=== PATIENT | male | born 1975 | race Two or more races ===

== ENCOUNTER → 2016-06-22 | Outpatient (CLI) | payer OTHER ==
[2016-06-22 13:34] LABS: Urine Bilirubin Negative (Negative); Urine Blood Negative /uL (Negative); Urine Color Yellow (Yellow); Urine Glucose Normal (Normal); Urine Ketone Negative (Negative); Urine Nitrite Negative (Negative); Urine RBC <1 /hpf (0 - 3); Urine Urobilinogen Normal (Negative); Urine pH 6.5 (5.0-8.0)
[2016-06-22 13:44] LABS: Albumin 3.7 g/dL (3.4-5.0); BUN/Creatinine Ratio 9.3; Bilirubin, Total 1.4 mg/dL (0.2-1.0); Potassium 4.3 mmol/L (3.5-5.1); Total Protein 7.2 g/dL (6.4-8.2)
[2016-06-22 13:50] LABS: Basophils # (auto) 0 uL; Basophils % (auto) 0.6 % (0.0-2.0); Eosinophils # (auto) 0.1 uL; Eosinophils % (auto) 1.4 % (0.0-7.0); Hematocrit 51.6 % (41.0-53.0); Hemoglobin 17.2 g/dL (13.5-17.5); Lymphocytes # (auto) 1.9 uL; Mean Corpuscular Hemoglobin 31.1 pg (28.0-32.0); Mean Corpuscular Hgb Conc. 33.3 g/dL (32.0-36.0); Mean Corpuscular Volume 93.2 fL (80.0-100.0); Mean Platelet Volume 8.3 fL (7.4-10.4); Monocytes # (auto) 0.5 uL; Neutrophils # (auto) 2.7 uL; Platelet Count (auto) 258 10^3/uL (140-450); Red Cell Distribution Width 14.3 % (11.6-16.0); White Blood Cell 5.2 10^3/uL (4.4-10.8)
== END | disposition home or self-care (01) ==
LOC: LAB 12:35
DX: E78.5 Hyperlipidemia, unspecified (principal)
CPT/HCPCS: 36415; 80053; 80061; 81001; 84443; 85025

== ENCOUNTER → 2016-07-28 | Outpatient (CLI) | payer OTHER ==
[2016-07-28 14:44] LABS: Urine RBC None Seen /hpf (0 - 3)
[2016-07-28 15:15] LABS: Albumin 3.8 g/dL (3.4-5.0); BUN/Creatinine Ratio 16.3; Calcium 8.9 mg/dL (8.5-10.1); Total Protein 7.3 g/dL (6.4-8.2)
[2016-07-28 15:27] LABS: Urine Bilirubin Negative (Negative); Urine Blood Negative /uL (Negative); Urine Color Yellow (Yellow); Urine Glucose Normal (Normal); Urine Ketone Negative (Negative); Urine Nitrite Negative (Negative); Urine Urobilinogen Normal (Negative); Urine pH 5.5 (5.0-8.0)
[2016-07-28 16:35] LABS: Hepatitis B Surface Antibody Negative
== END | disposition home or self-care (01) ==
LOC: LAB 13:46
DX: E78.5 Hyperlipidemia, unspecified (principal); Z20.2 Contact with and (suspected) exposure to infections with a predominantly sexual mode of transmission
CPT/HCPCS: 36415; 80053; 80061; 81001; 84443; 86592; 86703; 86704; 86706; 86708; 86803; 87340

== ENCOUNTER → 2017-07-25 | Outpatient (CLI) | payer OTHER ==
[2017-07-25 11:44] LABS: Urine Bacteria NONE SEEN /hpf (None Seen); Urine Blood Negative /uL (Negative); Urine Specific Gravity 1.003 (1.001-1.035); Urine WBC <1 /hpf (0 - 3)
[2017-07-25 11:45] LABS: Basophils # (auto) 0 uL; Basophils % (auto) 0.4 % (0.0-2.0); Eosinophils # (auto) 0.1 uL; Eosinophils % (auto) 1.3 % (0.0-7.0); Hematocrit 48.3 % (41.0-53.0); Hemoglobin 16.3 g/dL (13.5-17.5); Lymphocytes # (auto) 1.4 uL; Lymphocytes % (auto) 30.2 % (10.0-50.0); Mean Corpuscular Hemoglobin 31.3 pg (28.0-32.0); Mean Corpuscular Hgb Conc. 33.8 g/dL (32.0-36.0); Mean Corpuscular Volume 92.6 fL (80.0-100.0); Monocytes # (auto) 0.3 uL; Neutrophils # (auto) 2.8 uL; Neutrophils % (auto) 61.1 % (37.0-80.0); Nucleated Red Blood Cells % 0.1 %; Platelet Count (auto) 244 10^3/uL (140-450); Red Blood Cells 5.21 10^6/uL (4.5-5.90); Red Cell Distribution Width 13.6 % (11.8-14.3); White Blood Cell 4.7 10^3/uL (4.4-10.8)
[2017-07-25 12:39] LABS: Albumin 3.9 g/dL (3.4-5.0); BUN/Creatinine Ratio 15.4; Bilirubin, Total 0.8 mg/dL (0.2-1.0); Calcium 8.6 mg/dL (8.5-10.1); Potassium 3.7 mmol/L (3.5-5.1); Total Protein 7.4 g/dL (6.4-8.2)
== END | disposition home or self-care (01) ==
LOC: LAB 11:00
PROVIDERS: ATTEND Nurse Practitioner
DX: E78.5 Hyperlipidemia, unspecified (principal)
CPT/HCPCS: 36415; 80053; 80061; 81001; 83036; 84443; 85025

== ENCOUNTER → 2019-02-14 | Outpatient (CLI) | payer OTHER ==
[2019-02-14 15:43] LABS: Basophils # (auto) 0 uL; Basophils % (auto) 0.8 % (0.0-2.0); Eosinophils # (auto) 0.1 uL; Eosinophils % (auto) 1.3 % (0.0-7.0); Hematocrit 48.5 % (41.0-53.0); Hemoglobin 16.5 g/dL (13.5-17.5); Lymphocytes # (auto) 1.4 uL; Mean Corpuscular Hemoglobin 31.9 pg (28.0-32.0); Mean Corpuscular Volume 93.7 fL (80.0-100.0); Monocytes # (auto) 0.4 uL; Monocytes % (auto) 9.3 % (0.0-12.0); Neutrophils # (auto) 2.7 uL; Neutrophils % (auto) 58.6 % (37.0-80.0); Platelet Count (auto) 229 10^3/uL (140-450); Red Blood Cells 5.17 10^6/uL (4.5-5.90); Red Cell Distribution Width 13.7 % (11.8-14.3); White Blood Cell 4.7 10^3/uL (4.4-10.8)
[2019-02-14 16:08] LABS: Albumin 3.7 g/dL (3.4-5.0); BUN/Creatinine Ratio 12.6; Calcium 8.8 mg/dL (8.5-10.1)
[2019-02-14 16:12] LABS: Bilirubin, Total 0.7 mg/dL (0.2-1.0); Total Protein 7.5 g/dL (6.4-8.2)
== END | disposition home or self-care (01) ==
LOC: LAB 15:06
PROVIDERS: ATTEND Internal Medicine
DX: Z00.00 Encounter for general adult medical examination without abnormal findings (principal)
CPT/HCPCS: 36415; 80053; 80061; 82306; 84443; 85025

== ENCOUNTER → 2019-03-28 | Outpatient (CLI) | payer OTHER ==
[2019-03-28 15:54] LABS: INR 1.08 (0.9-1.15)
[2019-03-28 16:15] LABS: Folate (Folic Acid) 15.34 ng/mL (5.38-24)
== END | disposition home or self-care (01) ==
LOC: LAB 14:29
PROVIDERS: ATTEND Internal Medicine
DX: I26.99 Other pulmonary embolism without acute cor pulmonale (principal)
CPT/HCPCS: 36415; 81241; 82607; 82746; 83090; 85301; 85302; 85306; 85610; 85613; 85670; 85705; 85732

== ENCOUNTER → 2019-05-22 | Outpatient (CLI) | payer OTHER | END | disposition home or self-care (01) | LOC: LAB 15:09 | PROVIDERS: ATTEND Internal Medicine | DX: D68.2 Hereditary deficiency of other clotting factors (principal) | CPT/HCPCS: 36415; 85652; 86225; 86235 ==

== ENCOUNTER 2019-05-25 05:15 | Emergency (ER) | payer OTHER ==
[~2019-05-25] VITALS: Ht 175.3 cm; Wt 86.2 kg
[2019-05-25 06:45] LABS: Basophils # (auto) 0 uL; Eosinophils # (auto) 0 uL; Hemoglobin 18.6 g/dL (13.5-17.5); Lymphocytes # (auto) 0.4 uL; Mean Corpuscular Hgb Conc. 34.2 g/dL (32.0-36.0); Nucleated Red Blood Cells % 0.1 %
[2019-05-25 06:47] LABS: Basophils % (auto) 0.6 % (0.0-2.0); Hematocrit 54.5 % (41.0-53.0); Lymphocytes % (auto) 7.7 % (10.0-50.0); Mean Corpuscular Hemoglobin 31.6 pg (28.0-32.0); Mean Corpuscular Volume 92.4 fL (80.0-100.0); Monocytes # (auto) 0.3 uL; Monocytes % (auto) 6.5 % (0.0-12.0); Neutrophils # (auto) 4.5 uL; Neutrophils % (auto) 85.2 % (37.0-80.0); Platelet Count (auto) 249 10^3/uL (140-450); Red Blood Cells 5.89 10^6/uL (4.5-5.90); Red Cell Distribution Width 14.3 % (11.8-14.3); White Blood Cell 5.3 10^3/uL (4.4-10.8)
[2019-05-25 07:08] LABS: Albumin 3.9 g/dL (3.4-5.0); Anion Gap 10 (5-15); BUN/Creatinine Ratio 13.9; Blood Urea Nitrogen 16 mg/dL (7-18); Carbon Dioxide 23 mmol/L (21-32); Chloride 102 mmol/L (98-107); GFR African American 89 mL/min; GFR Non-African American 73 mL/min; Glucose 140 mg/dL (74-106); Magnesium 1.9 mg/dL (1.6-2.6); Sodium 135 mmol/L (136-145)
[2019-05-25] MEDS ORDERED: SODIUM CHLORIDE 0.9% 1,000 ML IVB ONE (07:14)
[2019-05-25] MEDS ORDERED: METOCLOPRAMIDE HCL 5MG/ml INJ 2ml VIAL IV ONE (07:15)
[2019-05-25 07:22] LABS: Alanine Aminotransferase 44 U/L (16-61); Alkaline Phosphatase 88 U/L (45-117); Aspartate Aminotransferase 34 U/L (15-37); Bilirubin, Total 0.8 mg/dL (0.2-1.0); Total Protein 8.2 g/dL (6.4-8.2)
[2019-05-25 08:17] LABS: INR 1.02 (0.9-1.15); Partial Thromboplastin Time 27.9 sec (23.64-32.05)
[2019-05-25 09:35] LABS: Urine Bacteria NONE SEEN /hpf (None Seen); Urine Blood TRACE /uL (Negative); Urine Mucus FEW (None Seen); Urine Specific Gravity 1.033 (1.001-1.035); Urine WBC 1 /hpf (0 - 3)
[2019-05-25 12:15] VITALS: BP 98/65
== END 2019-05-25 12:47 | disposition home or self-care (01) ==
LOC: ER 05:15
DX: K52.9 Noninfective gastroenteritis and colitis, unspecified (principal); K90.49 Malabsorption due to intolerance, not elsewhere classified
CPT/HCPCS: 36415; 71045; 80053; 81001; 83690; 83735; 84484; 85025; 85379; 85610; 85730; 93005; 99284; J2765

== ENCOUNTER → 2020-01-09 | Outpatient (CLI) | payer OTHER ==
[2020-01-09 15:00] LABS: Basophils # (auto) 0.1 10 ^3/uL (0-0.2); Basophils % (auto) 1.1 % (0.0-2.0); Eosinophils # (auto) 0.1 10 ^3/uL (0-0.8); Eosinophils % (auto) 1.4 % (0.0-7.0); Hematocrit 52.1 % (41.0-53.0); Hemoglobin 17.2 g/dL (13.5-17.5); Lymphocytes # (auto) 1.7 10 ^3/uL (0.4-5.4); Lymphocytes % (auto) 33.1 % (10.0-50.0); Mean Corpuscular Hemoglobin 31.3 pg (28.0-32.0); Mean Corpuscular Volume 94.9 fL (80.0-100.0); Monocytes # (auto) 0.5 10 ^3/uL (0-1.3); Monocytes % (auto) 9.8 % (0.0-12.0); Neutrophils # (auto) 2.9 10 ^3/uL (1.6-8.6); Neutrophils % (auto) 54.6 % (37.0-80.0); Nucleated Red Blood Cells % 0.2 %; Platelet Count (auto) 245 10^3/uL (140-450); Red Blood Cells 5.49 10^6/uL (4.5-5.90); White Blood Cell 5.2 10^3/uL (4.4-10.8)
[2020-01-09 18:09] LABS: Potassium 4.7 mmol/L (3.5-5.1)
[2020-01-09 18:44] LABS: Albumin 3.7 g/dL (3.4-5.0); BUN/Creatinine Ratio 9.3; Calcium 9.1 mg/dL (8.5-10.1); Total Protein 7.3 g/dL (6.4-8.2)
== END | disposition home or self-care (01) ==
LOC: LAB 14:47
PROVIDERS: ATTEND Internal Medicine
DX: Z00.00 Encounter for general adult medical examination without abnormal findings (principal); R73.03 Prediabetes; Z83.3 Family history of diabetes mellitus
CPT/HCPCS: 36415; 80053; 80061; 83036; 84439; 84443; 85025

== ENCOUNTER → 2020-07-02 | Outpatient (CLI) | payer OTHER ==
[2020-07-02 12:06] LABS: Albumin 3.6 g/dL (3.4-5.0); Potassium 4.2 mmol/L (3.5-5.1)
[2020-07-02 12:13] LABS: BUN/Creatinine Ratio 14.6; Bilirubin, Total 1.1 mg/dL (0.2-1.0); Total Protein 7.4 g/dL (6.4-8.2)
== END | disposition home or self-care (01) ==
LOC: LAB 11:12
PROVIDERS: ATTEND Internal Medicine
DX: E78.5 Hyperlipidemia, unspecified (principal)
CPT/HCPCS: 36415; 80053; 80061

== ENCOUNTER 2020-07-04 20:25 | Emergency (ER) | payer OTHER ==
[~2020-07-04] VITALS: Ht 175.3 cm; Wt 86.2 kg
[2020-07-04 23:01] VITALS: BP 142/83
== END 2020-07-04 23:32 | disposition home or self-care (01) ==
LOC: ER 20:27
DX: L02.811 Cutaneous abscess of head [any part, except face] (principal)

== ENCOUNTER 2021-05-03 13:02 | Emergency (ER) | payer BC, OTHER ==
[~2021-05-03] VITALS: Ht 175.3 cm; Wt 86.2 kg
[2021-05-03] MEDS ORDERED: ACET-1304 PO (22:00)
[2021-05-03] MEDS ORDERED: PSEU1SYP6 PO (22:00)
[2021-05-03] MEDS ORDERED: PRED20TA2 PO (22:00)
[2021-05-03] MEDS ORDERED: AZITTAB PO (22:00)
[2021-05-03 22:15] VITALS: BP 134/86
== END 2021-05-03 22:23 | disposition home or self-care (01) ==
LOC: ER 13:02
DX: U07.1 COVID-19 (principal); M79.10 Myalgia, unspecified site; R51.9 Headache, unspecified
CPT/HCPCS: 36415; 71045; 87426

== ENCOUNTER 2021-08-09 10:57 | Emergency (ER) | payer BC, OTHER ==
[~2021-08-09] VITALS: Ht 175.3 cm; Wt 86.2 kg
[~2021-08-09 10:57] MED LIST: ACET-1304 PO; AZITTAB PO; PRED20TA2 PO; PSEU1SYP6 PO
[2021-08-09 12:36] VITALS: BP 114/84
[2021-08-09] MEDS ORDERED: ACET-1158 PO (13:49)
[2021-08-09] MEDS ORDERED: CYCL-837 PO (13:49)
== END 2021-08-09 14:20 | disposition home or self-care (01) ==
LOC: ER 10:57
DX: S39.012A Strain of muscle, fascia and tendon of lower back, initial encounter (principal); V43.52XA Car driver injured in collision with other type car in traffic accident, initial encounter; Y93.89 Activity, other specified; Y92.488 Other paved roadways as the place of occurrence of the external cause; Y99.8 Other external cause status
CPT/HCPCS: 72100

== ENCOUNTER → 2022-02-28 | Outpatient (CLI) | payer BC ==
[~2022-02-28] MED LIST changes: +ACET-1158 PO; +CYCL-837 PO
[2022-02-28 08:31] LABS: Basophils # (auto) 0 10 ^3/uL (0-0.2); Basophils % (auto) 0.6 % (0.0-2.0); Eosinophils # (auto) 0.1 10 ^3/uL (0-0.8); Eosinophils % (auto) 1.7 % (0.0-7.0); Lymphocytes % (auto) 45.2 % (10.0-50.0); Mean Corpuscular Hemoglobin 31.4 pg (28.0-32.0); Mean Corpuscular Hgb Conc. 34.1 g/dL (32.0-36.0); Monocytes # (auto) 0.4 10 ^3/uL (0-1.3); Monocytes % (auto) 9.6 % (0.0-12.0); Neutrophils # (auto) 1.9 10 ^3/uL (1.6-8.6); Neutrophils % (auto) 42.9 % (37.0-80.0); Nucleated Red Blood Cells % 0.1 %; Red Blood Cells 5.43 10^6/uL (4.5-5.90); White Blood Cell 4.4 10^3/uL (4.4-10.8)
[2022-02-28 09:33] LABS: Albumin 3.7 g/dL (3.4-5.0); Calcium 9.2 mg/dL (8.5-10.1); Potassium 4.2 mmol/L (3.5-5.1); Total Protein 7.3 g/dL (6.4-8.2)
== END | disposition home or self-care (01) ==
LOC: LAB 07:56
PROVIDERS: ATTEND Internal Medicine
DX: I10 Essential (primary) hypertension (principal); E11.9 Type 2 diabetes mellitus without complications
CPT/HCPCS: 36415; 80053; 80061; 83036; 84153; 84443; 85025

== ENCOUNTER → 2022-05-31 | Outpatient (CLI) | payer BC ==
[2022-05-31 15:36] LABS: Anion Gap 2 (5-15); Carbon Dioxide 29 mmol/L (21-32); Chloride 110 mmol/L (98-107); Sodium 141 mmol/L (136-145)
[2022-05-31 15:37] LABS: Blood Urea Nitrogen 13 mg/dL (7-18); Glucose 112 mg/dL (74-106)
[2022-05-31 15:38] LABS: Alkaline Phosphatase 79 U/L (45-117); Aspartate Aminotransferase 32 U/L (15-37); BUN/Creatinine Ratio 12.9; GFR African American 102 mL/min; GFR Non-African American 84 mL/min
[2022-05-31 15:39] LABS: Alanine Aminotransferase 30 U/L (16-61); Albumin 3.7 g/dL (3.4-5.0); Bilirubin, Total 0.6 mg/dL (0.2-1.0); Calcium 8.6 mg/dL (8.5-10.1); Cholesterol 227 mg/dL (< 200); Total Protein 6.9 g/dL (6.4-8.2); Triglycerides 87 mg/dL (< 150)
[2022-05-31 15:40] LABS: HDL Cholesterol 47 mg/dL (40-59); LDL Cholesterol 153 mg/dL (< 100)
== END | disposition home or self-care (01) ==
LOC: LAB 11:57
PROVIDERS: ATTEND Internal Medicine
DX: E78.5 Hyperlipidemia, unspecified (principal)
CPT/HCPCS: 36415; 80053; 80061

== ENCOUNTER 2024-09-17 11:17 | Emergency (ER) | payer BC ==
[~2024-09-17] VITALS: Ht 175.3 cm; Wt 86.0 kg
[~2024-09-17 11:17] MED LIST changes: -ACET-1158 PO; +ACET500T58 PO
--- NOTE | 2024-09-17 11:55 | ED.PDOC ---
History of Present Illness HPI Comments 48-year-old male who comes in with chief complaint of left leg injury. The patient states that he was moving a pulp drier firer yesterday and it dropped on his left tib-fib area. The patient does have a history of DVT so came to the emergency department's for evaluation of the possible fracture on the leg. He states that he tried to ambulate on it in his seems to be getting worse. Time Seen by MD: 11:52 Primary Care Provider: MARLINE Reviewed Notes: Nurses Notes, Medications, Allergies (No allergies to medi cations) Allergies: Coded Allergies: NO KNOWN ALLERGIES (Unverified , 03/22/19) Home Meds Active Scripts Acetaminophen (Acetaminophen) 500 Mg Tab, 500 MG PO QIDP, #10 TAB 0 Refills Prov:TIMUR VALLE 08/09/21 Cyclobenzaprine Hcl (Cyclobenzaprine Hcl) 5 Mg Tab, 1 TAB PO QPM, #14 TAB 0 Refills Prov:TIMUR VALLE 08/09/21 Eszycsckcku-Vvczxmeq-Qp (Bromphen/Pseudoephedrine 30-2-10 mg/5Ml) 1 Syp Syp, 5 ML PO TID PRN, #240 ML Prov:BRENDA LOPEZ [employer]ICER 05/03/21 Acetaminophen (Tylenol Extra Strength) 500 Mg Tab, 500 MG PO Q4HP PRN for 10 Days, #50 TAB Prov:BRENDA LOPEZ [employer]SERV[employer] OFFICER 05/03/21 Prednisone (Prednisone) 20 Mg Tab, 40 MG PO DAILY for 5 Days, #10 TAB Prov:BRENDA LOPEZ [employer]IL[employer] CONSERVATION OFFICER 05/03/21 Azithromycin (Zithromax Z-Prabhakar) 250 Mg Tab, 250 MG PO take as directed for 5 Days, #6 TAB Prov:BRENDA LOPEZ [employer]IL[employer] CONSERVATION OFFICER 05/03/21 Information Source: Patient Mode of Arrival: Ambulatory Severity: Moderate Timing: Days Duration: Since onset Prehospital treatment: None Associated signs and symptoms Left tib-fib abrasion with pain Past Medical History PAST MEDICAL HISTORY: PE Past Medical History (Other): Previous history of DVT Surgical History: Denies all surgeries Family History Family History: Family hx of DM Social History Smoker: Non-Smoker Alcohol: Occasionally Drugs: Denies Drug Use Lives In: Home Constitutional: denies: chills, diaphoresis, fatigue, fever, malaise, sweats, weakness, others EENTM: denies: blurred vision, double vision, ear bleeding, ear discharge, ear drainage, ear pain, ear ringing, eye pain, eye redness, hearing loss, mouth pain, mouth swelling, nasal discharge, nose bleeding, nose congestion, nose pain, photophobia, tearing, throat pain, throat swelling, voice changes, others Respiratory: denies: cough, hemoptysis, orthopnea, SOB at rest, shortness of breath, SOB with excertion, stridor, wheezing, others Cardiovascular: denies: chest pain, dizzy spells, diaphoresis, Dyspnea on exertion, edema, irregular heart beat, left arm pain, lightheadedness, palpitations, PND, syncope, others Gastrointestinal: denies: abdomen distended, abdominal pain, blood streaked bowels, constipated, diarrhea, dysphagia, difficulty swallowing, hematemesis, melena, nausea, poor appetite, poor fluid intake, rectal bleeding, rectal pain, vomiting, others Genitourinary: denies: burning, dysuria, flank pain, frequency, hematuria, incontinence, penile discharge, penile sore, pain, testicle pain, testicle swelling, urgency, others Neurological: denies: dizziness, fainting, headache, left sided numbness, left sided weakness, numbness, paresthesia, pre-existing deficit, right sided numbness, right sided weakness, seizure, speech problems, tingling, tremors, weakness, others Musculoskeletal: reports: others (Left leg pain with abrasion); denies: back pain, gout, joint pain, joint swelling, muscle pain, muscle stiffness, neck pain Integumetry: denies: bruises, change in color, change in hair/nails, dryness, laceration, lesions, lumps, rash, wounds, others Allergic/Immunocompromised: denies: Difficulty Healing, Frequent Infections, Hives, Itching, others Hematologic/Lymphatic: denies: anemia, blood clots, easy bleeding, easy bruising, swollen glands, others Endocrine: denies: excessive hunger, excessive sweating, excessive thirst, excessive urination, flushing, intolerance to cold, intolerance to heat, unexplained weight gain, unexplained weight loss, others Psychiatric: denies: anxiety, bipolar disorder, depression, hopeless, panic disorder, schizophrenia, sleepless, suicidal, others Physical Exam General Appearance: No Apparent Distress HEENT: Normal ENT Inspection, Pharynx Normal, TMs Normal Neck: Full Range of Motion, Non-Tender, Normal, Normal Inspection Respiratory: Chest Non-Tender, Lungs Clear, No Accessory Muscle Use, No Respiratory Distress, Normal Breath Sounds Cardiovascular: No Edema, No JVD, No Murmur, No Gallop, Normal Peripheral Pulses, Regular Rate/Rhythm Breast Exam: Deferred Gastrointestinal: No Organomegaly, Non Tender, No Pulsatile Mass, Normal Bowel Sounds, Soft Genitalia: Deferred Pelvic: Deferred Rectal: Deferred Extremities: No calf tenderness, Normal capillary refill, Normal inspection, Normal range of motion, Non-tender, No pedal edema Musculoskeletal : Apperance: Normal Neurologic: Alert, surgeon chief II-XII nml as Tested, No Motor Deficits, Normal Affect, Normal Mood, No Sensory Deficits Cerebellar Function: Normal Reflexes: Normal Skin: Dry, Normal Color, Warm, Other (Abrasions to the left anterior tib-fib region) Lymphatic: No Adenopathy Was a procedure done? Was a procedure done?: No Differential Dx Considerations may include: Fracture, strain, contusion X-Ray, Labs, Meds, VS X-ray of the left tib-fib region is negative for any fracture. The patient is being discharged and will follow up with the primary care doctor The patient will return to the emergency department's the condition worsens. The patient understands and agrees with the management. Images Reviewed?: Images reviewed and evaluated by me Time of 1ST Reevaluation: 11:54 Reevaluation 1ST: Unchanged Patient Education/Counseling: Diagnosis, Treatment, Prognosis, Need For Follow Up Family Education/Counseling: No Family Present Departure 1 Departure Time of Disposition: 12:04 Impression: Primary Impression: Contusion of left leg Qualified Codes: S80.12XA - Contusion of left lower leg, initial encounter Disposition: HOME / SELF CARE / HOMELESS Condition: Fair Discharged With: Self Critical Care Note Critical Care Time?: No Stability Stability form required: No Heart Score Heart Score: Heart Score Response (Comments) Value History N/A 0 EKG N/A 0 Age N/A 0 Risk Factors N/A 0 Troponin N/A 0 Total 0 HAYDE MINOR MD September 17, 2024 11:55
[2024-09-17 12:10] VITALS: BP 127/89; PULSE 100; RESP 16; TEMP 98.4; O2SAT 95
--- NOTE | 2024-09-17 12:24 | DVH ---
CLINICAL INDICATION: trauma TECHNIQUE: 3 radiographic views of the left tibia/fibula were obtained. Comparison: None FINDINGS/IMPRESSION: There is no evidence of acute fracture or dislocation. The visualized joint space is well maintained. The alignment is anatomical. There is no radiopaque foreign body.
== END 2024-09-17 14:00 | disposition home or self-care (01) ==
LOC: ER 11:25
DX: S80.12XA Contusion of left lower leg, initial encounter (principal); Z86.718 Personal history of other venous thrombosis and embolism; Z86.711 Personal history of pulmonary embolism; Z79.52 Long term (current) use of systemic steroids; W22.8XXA Striking against or struck by other objects, initial encounter; Y93.89 Activity, other specified; Y92.89 Other specified places as the place of occurrence of the external cause; Y99.8 Other external cause status
CPT/HCPCS: 73590

== ENCOUNTER 2024-09-19 13:07 | Inpatient (IN) | payer BC ==
[~2024-09-19] VITALS: Ht 175.3 cm; Wt 91.0 kg
[2024-09-19 15:54] LABS: Basophils # (auto) 0 10 ^3/uL (0-0.2); Basophils % (auto) 0.4 % (0.0-2.0); Eosinophils # (auto) 0.1 10 ^3/uL (0-0.8); Eosinophils % (auto) 0.9 % (0.0-7.0); Hemoglobin 17.2 g/dL (13.5-17.5); Lymphocytes # (auto) 1.2 10 ^3/uL (0.4-5.4); Lymphocytes % (auto) 15.3 % (10.0-50.0); Mean Corpuscular Hemoglobin 31.9 pg (28.0-32.0); Mean Corpuscular Hgb Conc. 33.6 g/dL (32.0-36.0); Mean Corpuscular Volume 94.9 fL (80.0-100.0); Monocytes # (auto) 0.6 10 ^3/uL (0-1.3); Monocytes % (auto) 7.8 % (0.0-12.0); Neutrophils # (auto) 6.1 10 ^3/uL (1.6-8.6); Neutrophils % (auto) 75.6 % (37.0-80.0); Nucleated Red Blood Cells % 0.2 %; Platelet Count (auto) 230 10^3/uL (140-450); Red Blood Cells 5.37 10^6/uL (4.5-5.90); Red Cell Distribution Width 13.8 % (11.8-14.3); White Blood Cell 8.1 10^3/uL (4.4-10.8)
--- NOTE | 2024-09-19 15:56 | ED.PDOC ---
Musculoskeletal HPI Comments 48-year-old male presenting to the ED with chief complaint of left lower leg redness and pain. Patient reportedly he had previously dropped a dry onto his left leg on Monday. Patient relays that he had visited [facility] the next day where an x-ray showed no fractures and he was discharged same day. Patient states that noticed this morning there was more redness, swelling, and 8/10 pain to his left lower leg. Ice was applied to it however no relief was noted Patient has a history of pulmonary embolism in his currently on Eliquis. Unable to bear weight Denies further injury Denies another fall Denies previous surgeries to the leg Denies fever chills night sweats nausea vomiting Denies drainage to abrasion Chief Complaint: Lower Extremity Time Seen by MD: 15:42 Primary Care Provider: MARLINE Reviewed Notes: Nurses Notes, Medications, Allergies Allergies: Coded Allergies: NO KNOWN ALLERGIES (Unverified , 03/22/19) Home Meds Reported Medications Apixaban Base (ELIQUIS) 5 Mg Tab, 5 MG PO BID, TAB 09/19/24 Information Source: Patient Mode of Arrival: Ambulatory Location: Left Extremity Location: Tibia Timing: Hours Prehospital treatment: None Severity: Moderate Able to Move Extremity: Yes Bear Weight: Limited Pain: Moderate Mechanism: Blunt Trauma Circumstances: Accident Onset of Symptoms: After Trauma Symptoms: Swelling, Pain, Erythema, Warmth DVT Risk Factors: PE Last Tetanus: UTD Associated signs and symptoms: Swelling, Leg pain Past Medical History PAST MEDICAL HISTORY: PE Surgical History: Denies all surgeries Family History Family History: Family hx of DM Social History Smoker: Non-Smoker Alcohol: Occasionally Drugs: Denies Drug Use Lives In: Home Constitutional: denies: chills, diaphoresis, fatigue, fever, malaise, sweats, weakness, others EENTM: denies: blurred vision, double vision, ear bleeding, ear discharge, ear drainage, ear pain, ear ringing, eye pain, eye redness, hearing loss, mouth pain, mouth swelling, nasal discharge, nose bleeding, nose congestion, nose pain, photophobia, tearing, throat pain, throat swelling, voice changes, others Respiratory: denies: cough, hemoptysis, orthopnea, SOB at rest, shortness of breath, SOB with excertion, stridor, wheezing, others Cardiovascular: denies: chest pain, dizzy spells, diaphoresis, Dyspnea on exertion, edema, irregular heart beat, left arm pain, lightheadedness, palpitations, PND, syncope, others Gastrointestinal: denies: abdomen distended, abdominal pain, blood streaked bowels, constipated, diarrhea, dysphagia, difficulty swallowing, hematemesis, melena, nausea, poor appetite, poor fluid intake, rectal bleeding, rectal pain, vomiting, others Genitourinary: denies: burning, dysuria, flank pain, frequency, hematuria, incontinence, penile discharge, penile sore, pain, testicle pain, testicle swelling, urgency, others Neurological: denies: dizziness, fainting, headache, left sided numbness, left sided weakness, numbness, paresthesia, pre-existing deficit, right sided numbness, right sided weakness, seizure, speech problems, tingling, tremors, wea kness, others Musculoskeletal: denies: back pain, gout, joint pain, joint swelling, muscle pain, muscle stiffness, neck pain, others Integumetry: reports: change in color, wounds; denies: bruises, change in hair/nails, dryness, laceration, lesions, lumps, rash, others Allergic/Immunocompromised: denies: Difficulty Healing, Frequent Infections, Hives, Itching, others Hematologic/Lymphatic: denies: anemia, blood clots, easy bleeding, easy bruising, swollen glands, others Endocrine: denies: excessive hunger, excessive sweating, excessive thirst, excessive urination, flushing, intolerance to cold, intolerance to heat, unexplained weight gain, unexplained weight loss, others Psychiatric: denies: anxiety, bipolar disorder, depression, hopeless, panic disorder, schizophrenia, sleepless, suicidal, others All Other Systems: Reviewed and Negative Physical Exam General Appearance: No Apparent Distress, Normal HEENT: Normal ENT Inspection, Pharynx Normal, TMs Normal Neck: Full Range of Motion, Non-Tender, Normal, Normal Inspection Respiratory: Chest Non-Tender, Lungs Clear, No Accessory Muscle Use, No Respi ratory Distress, Normal Breath Sounds Cardiovascular: No Edema, No JVD, No Murmur, No Gallop, Normal Peripheral Pulses, Regular Rate/Rhythm Breast Exam: Deferred Gastrointestinal: No Organomegaly, Non Tender, No Pulsatile Mass, Normal Bowel Sounds, Soft Genitalia: Deferred Pelvic: Deferred Rectal: Deferred Extremities: Other (3x2 cm horizontal abrasion to the left anterior tibial shaft. Visible Surrounding erythema. Localized significantly swollen 2+, warmth to touch, TTP, and with no pain to the medial malleolus.) Musculoskeletal : Apperance: Normal Neurologic: Alert, binder cutter II-XII nml as Tested, No Motor Deficits, Normal Affect, Normal Mood, No Sensory Deficits Cerebellar Function: Normal Reflexes: Normal Skin: Dry, Normal Color, Warm Lymphatic: No Adenopathy Was a procedure done? Was a procedure done?: No Differential Diagnosis EXT Differential Diagnosis: Cellulitis, Deep Vein Thrombosis, Fracture, Disloca tion, Bursitis X-Ray, Labs, Meds, VS Vital Signs Date Time Temp Pulse Resp B/P (MAP) Pulse Ox O2 Delivery O2 Flow Rate FiO2 09/19/24 20:56 98.5 85 16 130/86 (101) 100 98.5 09/19/24 18:20 Room Air* 0 21 09/19/24 18:20 98.3 87 16 134/83 (100) 95 98.3 09/19/24 15:00 103 16 96 Room Air 09/19/24 15:00 97.6 103 16 140/86 (104) 96 97.6 09/19/24 13:17 97.9 109 16 140/88 (105) 95 97.9 Lab Test 09/19/24 15:26 Range/Units White Blood Count 8.1 4.4-10.8 10^3/uL Red Blood Count 5.37 4.5-5.90 10^6/uL Hemoglobin 17.2 13.5-17.5 g/dL Hematocrit 51.0 41.0-53.0 % Mean Corpuscular Volume 94.9 80.0-100.0 fL Mean Corpuscular Hemoglobin 31.9 28.0-32.0 pg Mean Corpuscular Hemoglobin Concent 33.6 32.0-36.0 g/dL Red Cell Distribution Width 13.8 11.8-14.3 % Platelet Count 230 140-450 10^3/uL Mean Platelet Volume 7.7 6.9-10.8 fL Neutrophils (%) (Auto) 75.6 37.0-80.0 % Lymphocytes (%) (Auto) 15.3 10.0-50.0 % Monocytes (%) (Auto) 7.8 0.0-12.0 % Eosinophils (%) (Auto) 0.9 0.0-7.0 % Basophils (%) (Auto) 0.4 0.0-2.0 % Neutrophils # (Auto) 6.1 1.6-8.6 10 ^3/uL Lymphocytes # (Auto) 1.2 0.4-5.4 10 ^3/uL Monocytes # (Auto) 0.6 0-1.3 10 ^3/uL Eosinophils # (Auto) 0.1 0-0.8 10 ^3/uL Basophils # (Auto) 0 0-0.2 10 ^3/uL Nucleated Red Blood Cells 0.2 % Erythrocyte Sedimentation Rate 49 H 0-20 mm/hr Sodium Level 138 136-145 mmol/L Potassium Level 3.8 3.5-5.1 mmol/L Chloride Level 104 98-107 mmol/L Carbon Dioxide Level 23 20-31 mmol/L Anion Gap 11 5-15 Blood Urea Nitrogen 15 9-23 mg/dL Creatinine 0.98 0.700-1.30 mg/dL Glomerular Filtration Rate Calc 95 >90 mL/min BUN/Creatinine Ratio 15.3 10.0-20.0 Serum Glucose 115 H 74-106 mg/dL Lactic Acid Level 0.8 0.4-2.0 mmol/L Calcium Level 10.1 8.7-10.4 mg/dL Total Bilirubin 1.1 H 0.2-1.0 mg/dL Direct Bilirubin 0.3 <0.3 mg/dL Aspartate Amino Transferase (AST) 17 13-40 U/L Alanine Aminotransferase (ALT) 21 7-40 U/L Alkaline Phosphatase 93 46-116 U/L C-Reactive Protein High Sensitivity 19.45 H <1.0 mg/dL Total Protein 7.9 5.7-8.2 g/dL Albumin 4.8 3.2-4.8 g/dL Microbiology Date/Time Source Procedure Growth Status 09/19/24 15:26 Blood Blood Culture - Preliminary NO GROWTH AFTER 72 HOURS OF INCUBATION. Resulted 09/19/24 15:10 Blood Blood Culture - Preliminary NO GROWTH AFTER 72 HOURS OF INCUBATION. Resulted [facility] [id number] [place] [id number] Ph: [phone] DIAGNOSTIC IMAGING Diagnostic Imaging Report : [id number] Signed PATIENT: LINDA GARSIA ACCT: [id number] UNIT: [id number] : 1975 LOC: ER ROOM / BED: / AGE / SEX: 48 / M ADM STATUS: REG ER SERVICE [id number] ORDERING PHYSICIAN: ESTRELLA BENZ NP PROCEDURE(s): LLDVT - LT Lower DVT REASON: R/O dvt ORDER NUMBER(s): [id number], ACCESSION NUMBER(s): [id number] Clinical History: R/O dvt Comparison: None Technique: Duplex Doppler evaluation of the deep venous system of the left lower extremity from the common femoral vein to the popliteal vein including color Doppler and spectral/pulsed waveform analysis was performed. Findings: The common femoral vein demonstrates appropriate compressibility and waveform variability. There is compressibility/patency of the great saphenous vein at the proximal thigh. The femoral vein demonstrates appropriate compressibility and waveform variability. The deep femoral vein demonstrates appropriate compressibility and waveform variability. The popliteal vein demonstrates appropriate compressibility and waveform variability. There is normal compressibility at the tibioperoneal trunk. Impression: 1. No left deep venous thrombosis. 2. If clinical concern/symptoms persist or worsen, short-interval follow-up study is suggested. ATED BY: ASHLEY CHRISTINA Jr., DO DICTATED DATE/TIME: 09/19/241601 SIGNED BY: ASHLEY CHRISTINA Jr., SIGNED DATE/TIME: 09/19/241601 CC: X-Ray, Labs, Meds, VS Comment 48-year-old male presenting to the ED with chief complaint of left lower leg redness and pain 10/10. Patient arrives alert and oriented, ABC's intact, afebrile, vital signs stable, saturating well in room air Peripheral IV insertion+ labs were ordered. CBC was ordered to exclude anemia, blood loss, or infection. BMP was ordered to exclude electrolyte abnormalities, renal failure, dehydr ation, hyperglycemia Blood culture and lactic acid ordered to rule out sepsis. CRP and ESR ordered to rule out inflammation. Labs showed: WBC 8.1, Neutrophils 75.6, electrolytes reassuring, GFR 95, serum glucose 115, CRP 19 lactic 0.8 Diagnostic imaging ordered by me and results interpreted by radiology : Left lower DVT Negative CT of the Left leg ordered to r/o deep space infection and abscess formation and results pending at this time History and findings consistent with cellulitis. Patient unable to bear weight on the affected leg d/t pain. Patient was started on IV abx and was given pain medication with minimal improvement on revaluation. The patient's workup reveals that the patient needs further treatment for the above medical conditions with Abx Patient verbalized understanding of the above and is awaiting further evaluation by the admitting service. Time of 1ST Reevaluation: 16:42 Reevaluation 1ST: Unchanged Time of 2ND Reevaluation: 17:11 Reevaluation 2ND: Unchanged Patient Education/Counseling: Diagnosis, Treatment Family Education/Counseling: No Family Present Sepsis Sepsis Reasesment Focused Exam Orders: Laboratory Tests 09/19/24 15:26: Lactic Acid Level 0.8 Departure 1 Departure Time of Disposition: 17:41 Impression: Primary Impression: Cellulitis Qualified Codes: L03.116 - Cellulitis of left lower limb Additional Impressions: Edema of left lower leg Intractable pain Disposition: ADMITTED INPATIENT Condition: Serious Critical Care Note Critical Care Time?: No Stability Stability form required: No Heart Score Heart Score: Heart Score Response (Comments) Value History N/A 0 EKG N/A 0 Age N/A 0 Risk Factors N/A 0 Troponin N/A 0 Total 0 I personally scribed for ESTRELLA BENZ NP (FRANOMA) on 09/19/24 at 15:56. Electronically submitted by Eliot Serrano ([email or web address]). I personally scribed for ESTRELLA BENZ NP (FRANOMA) on 09/19/24 at 16:21. Electronically submitted by Eliot Serrano ([email or web address]). ESTRELLA BENZ NP September 19, 2024 15:56
[2024-09-19 16:02] LABS: Chloride 104 mmol/L (98-107); Potassium 3.8 mmol/L (3.5-5.1); Sodium 138 mmol/L (136-145)
[2024-09-19 16:03] LABS: Anion Gap 11 (5-15); Carbon Dioxide 23 mmol/L (20-31)
[2024-09-19 16:04] LABS: Calcium 10.1 mg/dL (8.7-10.4)
--- NOTE | 2024-09-19 16:04 | DVH ---
Clinical History: R/O dvt Comparison: None Technique: Duplex Doppler evaluation of the deep venous system of the left lower extremity from the common femor al vein to the popliteal vein including color Doppler and spectral/pulsed waveform analysis was perfo rmed. Findings: The common femoral vein demonstrates appropriate compressibility and waveform variability. There is compressibility/patency of the great saphenous vein at the proximal thigh. The femoral vein demonstrates appropriate compressibility and waveform variability. The deep femoral vein demonstrates appropriate compressibility and waveform variability. The popliteal vein demonstrates appropriate compressibility and waveform variability. There is normal compressibility at the tibioperoneal trunk. Impression: 1. No left deep venous thrombosis. 2. If clinical concern/symptoms persist or worsen, short-interval follow-up study is suggested.
[2024-09-19 16:08] LABS: BUN/Creatinine Ratio 15.3 (10.0-20.0); Blood Urea Nitrogen 15 mg/dL (9-23)
[2024-09-19 16:09] LABS: Glucose 115 mg/dL (74-106)
[2024-09-19 16:20] LABS: CRP High Sensitivity 19.45 mg/dL (<1.0)
[2024-09-19 16:23] LABS: Erythrocyte Sedimentation Rate 49 mm/hr (0-20)
[2024-09-19] MEDS: cefTRIAXone 1GM/50ML D5W 50 ML IV ONE (16:30)
[2024-09-19] MEDS: IOHEXOL 300 MG/ML 100ML BOTTLE IJ ONE (16:33)
[2024-09-19] MEDS: HYDROcodone-ACET 10/325MG TAB PO ONE (17:14)
--- NOTE | 2024-09-19 18:11 | DVH ---
Procedure: CT LT LOWER EXTREMITY W CONTRAS 09/19/2024 04:39 PM Indication: Cellulitis. R/o abscess formation Comparison Study: None Technique: Axial images of the left lower extremity (knee to the toes) were obtained after intravenou s administration of contrast and reformatted in coronal and sagittal planes. All CT scans at this [facility] facility are performed using dose modulation techniques as appropriate to a performed exam inclu ding the following: Automated exposure control was utilized; adjustment of the MA and/or KV according to patient size; and use of iterative reconstruction technique. CT Dose: CTDI volume is 7.75 mGy. Do se-length product is 494.8 mGy*cm FINDINGS: Bones: No acute fracture or dislocation. Joint spaces are maintained. Tibial hallux sesamoid is seen. Soft tissues: Moderate subcutaneous edema noted over the lower calf medial malleolus. There is focal thickening of distal greater saphenous vein at the level of the lower leg and medial malleolus. IMPRESSION: 1. Cellulitis with no drainable fluid collection or evidence of osteomyelitis. Distal greater sapheno us thrombophlebitis can not be ruled out. Recommend clinical correlation and further evaluation with venous Doppler exam if clinically warranted.
[2024-09-19] MEDS: VANCOMYCIN 1GM/200ML PM 200 ML IV ONE (18:19)
[2024-09-19] MEDS ORDERED: VANCOMYCIN PER PHARMACY 0 MG IV SCH (21:15)
[2024-09-19] MEDS ORDERED: ACETAMINOPHEN 325 MG TAB PO PRN (21:15)
[2024-09-19 21:34] LABS: Bilirubin, Direct 0.3 mg/dL (<0.3); Bilirubin, Total 1.1 mg/dL (0.2-1.0); Total Protein 7.9 g/dL (5.7-8.2)
[2024-09-19 21:35] LABS: Albumin 4.8 g/dL (3.2-4.8)
--- NOTE | 2024-09-19 21:57 | DVHHP2 ---
History of Present Illness History of Present Illness 48-year-old male with past medical history of DVT 2 months ago (currently on apixaban), presents with left lower leg pain, redness, and swelling that started worsening over the last few days. He reports that on Monday, a dryer fell onto his left leg. He initially went to an outside ER where x-rays were negative for fracture and he was discharged. However, symptoms progressed with increased redness, swelling, and pain rated 8/10. He denies fevers, chills, night sweats, nausea, vomiting, or recent trauma other than the dryer incident. He is currentl y unable to bear weight on the leg. CT imaging revealed soft tissue edema and thickening in the distal leg; no fracture. Past Medical History: Recent DVT (on apixaban per patient) Medications: Apixaban 5 mg BID Tylenol as needed for pain Allergies: No known drug allergies Social History: Ambulatory prior to this event No mention of tobacco or drug use Alcohol: 4 shots every day (last intake on monday) Review of Systems Review of Systems Negative for fevers, chills, nausea, vomiting, chest pain, or shortness of breath. Allergies: Coded Allergies: NO KNOWN ALLERGIES (Unverified , 03/22/19) Medications Current Medications Medications Dose Ordered Sig/Srinath Route Start Time Stop Time Status Last Admin Dose Admin Vancomycin HCl 0 ml @ 0 mls/hr UD IV 09/19/24 21:15 Ceftriaxone Sodium 50 ml @ 100 mls/hr DAILY@09 IV 09/20/24 09:00 Apixaban 5 mg BID PO 09/19/24 22:00 Acetaminophen 650 mg Q4HP PRN PO 09/19/24 21:15 Ibuprofen 600 mg Q8HP PRN PO 09/19/24 21:15 Vancomycin HCl 200 ml @ 200 mls/hr Q12HR IV 09/20/24 10:00 Exam Vital Signs Vital Signs Date Time Temp Pulse Resp B/P (MAP) Pulse Ox O2 Delivery O2 Flow Rate FiO2 09/19/24 20:56 98.5 85 16 130/86 (101) 100 98.5 09/19/24 18:20 Room Air* 0 21 Exam Extremities: Left lower leg with swelling, erythema, and tenderness. Unable to bear weight. General Appearance: Alert, Oriented X3 HEENT: Atraumatic, PERRLA Respiratory: Clear to auscultation Cardiovascular: Regular rate Abdominal: Normal bowel sounds Neuro: Normal gait, Normal speech Psych/Mental Status: Mental status NL Labs/Xrays Labs Test 09/19/24 15:26 Range/Units White Blood Count 8.1 4.4-10.8 10^3/uL Red Blood Count 5.37 4.5-5.90 10^6/uL Hemoglobin 17.2 13.5-17.5 g/dL Hematocrit 51.0 41.0-53.0 % Mean Corpuscular Volume 94.9 80.0-100.0 fL Mean Corpuscular Hemoglobin 31.9 28.0-32.0 pg Mean Corpuscular Hemoglobin Concent 33.6 32.0-36.0 g/dL Red Cell Distribution Width 13.8 11.8-14.3 % Platelet Count 230 140-450 10^3/uL Mean Platelet Volume 7.7 6.9-10.8 fL Neutrophils (%) (Auto) 75.6 37.0-80.0 % Lymphocytes (%) (Auto) 15.3 10.0-50.0 % Monocytes (%) (Auto) 7.8 0.0-12.0 % Eosinophils (%) (Auto) 0.9 0.0-7.0 % Basophils (%) (Auto) 0.4 0.0-2.0 % Neutrophils # (Auto) 6.1 1.6-8.6 10 ^3/uL Lymphocytes # (Auto) 1.2 0.4-5.4 10 ^3/uL Monocytes # (Auto) 0.6 0-1.3 10 ^3/uL Eosinophils # (Auto) 0.1 0-0.8 10 ^3/uL Basophils # (Auto) 0 0-0.2 10 ^3/uL Nucleated Red Blood Cells 0.2 % Erythrocyte Sedimentation Rate 49 H 0-20 mm/hr Sodium Level 138 136-145 mmol/L Potassium Level 3.8 3.5-5.1 mmol/L Chloride Level 104 98-107 mmol/L Carbon Dioxide Level 23 20-31 mmol/L Anion Gap 11 5-15 Blood Urea Nitrogen 15 9-23 mg/dL Creatinine 0.98 0.700-1.30 mg/dL Glomerular Filtration Rate Calc 95 >90 mL/min BUN/Creatinine Ratio 15.3 10.0-20.0 Serum Glucose 115 H 74-106 mg/dL Lactic Acid Level 0.8 0.4-2.0 mmol/L Calcium Level 10.1 8.7-10.4 mg/dL Total Bilirubin 1.1 H 0.2-1.0 mg/dL Direct Bilirubin 0.3 <0.3 mg/dL Aspartate Amino Transferase (AST) 17 13-40 U/L Alanine Aminotransferase (ALT) 21 7-40 U/L Alkaline Phosphatase 93 46-116 U/L C-Reactive Protein High Sensitivity 19.45 H <1.0 mg/dL Total Protein 7.9 5.7-8.2 g/dL Albumin 4.8 3.2-4.8 g/dL Assessment/Plan Assessment/Plan #Leg cellulitis #H/o DVT #Possible Distal greater saphenous thrombophlebitis #Alcohol abuse Admit Med surg Apixaban 5 mg BID Vancomycin and ceftriaxone IV Tylenol for pain Case discussed with Dr Chi Full code Plan discussed with: Patient, Other (rn) My Orders Orders - IMMANUEL GARZA Procedure Category Date Status Time Admit ADMIT 09/19/24 Transmitted 21:05 Code Status CODE 09/19/24 Transmitted 21:05 Vital Signs [facility] 09/19/24 In Process 21:05 Review Orders With [facility] 09/19/24 In Process Adm. 21:05 Regular Diet DIET 09/20/24 Transmitted Breakfast Notify Of Changes [facility] 09/19/24 In Process From Base 21:05 Advance Directive [facility] 09/19/24 In Process 21:05 Patient Condition ORDERS 09/19/24 Transmitted 21:05 Allergies [facility] 09/19/24 In Process 21:05 Vancomycin Per [facility] 09/19/24 In Process Pharmacy 21:15 Ceftriaxone 1gm/50ml [facility] 09/20/24 In Process D5w (Rocephin) 09:00 Apixaban (Eliquis) [facility] 09/19/24 In Process 22:00 Acetaminophen Tablet [facility] 09/19/24 In Process (Tylenol Tablet) 21:15 Ibuprofen Tablet [facility] 09/19/24 In Process (Motrin Tablet) 21:15 * Wound Consult CONS 09/19/24 Transmitted Wound Culture W/ Gs RIAN 09/19/24 Logged 21:05 Vancomycin,Trough LAB 09/21/24 Verified 09:00 Vancomycin Per [facility] 09/21/24 In Process Pharmacy Protoc 10:00 Creatinine LAB 09/20/24 Verified 05:00 Vancomycin 1gm/200ml [facility] 09/20/24 In Process Pm 10:00 Urinalysis LAB 09/19/24 Logged 21:41 Drug Screen LAB 09/19/24 Logged 21:41 Date of Service: September 19, 2024 Billing Provider: ERICA CHI MD Common Visit Codes: [id number] INP/OBS CARE (HIGH) Secondary Visit Codes: [id number] CARE PLAN 30 MINUTES IMMANUEL GARZA RESIDENT September 19, 2024 21:57
[2024-09-19] MEDS: APIXABAN 5 MG TAB PO SCH (22:00)
[2024-09-19] MEDS ORDERED: APIX5TAB PO (23:43)
[2024-09-20] MEDS: IBUPROFEN 600 MG TAB PO PRN (00:25)
[2024-09-20 05:44] LABS: Basophils # (auto) 0 10 ^3/uL (0-0.2); Basophils % (auto) 0.6 % (0.0-2.0); Eosinophils # (auto) 0.1 10 ^3/uL (0-0.8); Eosinophils % (auto) 1.9 % (0.0-7.0); Hematocrit 46.6 % (41.0-53.0); Lymphocytes # (auto) 1.3 10 ^3/uL (0.4-5.4); Lymphocytes % (auto) 19.2 % (10.0-50.0); Mean Corpuscular Hemoglobin 32.4 pg (28.0-32.0); Mean Corpuscular Hgb Conc. 34.4 g/dL (32.0-36.0); Mean Corpuscular Volume 94.3 fL (80.0-100.0); Monocytes # (auto) 0.6 10 ^3/uL (0-1.3); Monocytes % (auto) 9.5 % (0.0-12.0); Neutrophils # (auto) 4.7 10 ^3/uL (1.6-8.6); Neutrophils % (auto) 68.8 % (37.0-80.0); Nucleated Red Blood Cells % 0.1 %; Platelet Count (auto) 233 10^3/uL (140-450); Red Blood Cells 4.94 10^6/uL (4.5-5.90); Red Cell Distribution Width 13.9 % (11.8-14.3); White Blood Cell 6.8 10^3/uL (4.4-10.8)
[2024-09-20 06:07] LABS: Alanine Aminotransferase 16 U/L (7-40); Albumin 4.4 g/dL (3.2-4.8); Alkaline Phosphatase 84 U/L (46-116); Anion Gap 8 (5-15); Aspartate Aminotransferase 17 U/L (13-40); BUN/Creatinine Ratio 18.4 (10.0-20.0); Blood Urea Nitrogen 16 mg/dL (9-23); Calcium 9.8 mg/dL (8.7-10.4); Carbon Dioxide 24 mmol/L (20-31); Chloride 105 mmol/L (98-107); Glucose 88 mg/dL (74-106); Potassium 3.7 mmol/L (3.5-5.1); Sodium 137 mmol/L (136-145); Total Protein 7.2 g/dL (5.7-8.2)
[2024-09-20 08:38] VITALS: BP 129/80; PULSE 69; RESP 20; TEMP 98.4; O2SAT 94
[2024-09-20] MEDS: cefTRIAXone 1GM/50ML D5W 50 ML IV SCH (09:20)
[2024-09-20] MEDS: VANCOMYCIN 1GM/200ML PM 200 ML IV SCH (09:21)
[2024-09-20 12:39] VITALS: BP 117/74; PULSE 66; RESP 18; TEMP 98; O2SAT 95
[2024-09-20] MEDS: SODIUM CHLORIDE 0.9% 1,000 ML IV ONE (12:43)
[2024-09-20 13:10] LABS: Urine Bacteria FEW /hpf (None Seen); Urine Blood Negative /uL (Negative); Urine Clarity Clear (Clear); Urine Color Yellow (Yellow); Urine Protein, UAD TRACE (Negative); Urine Specific Gravity 1.032 (1.001-1.035); Urine Squamous Epithelial Cell FEW /hpf (<5); Urine Urobilinogen 2 mg/dL (Negative); Urine WBC 1 /HPF (0-3); Urine pH 5.5 (5.0-9.0)
[2024-09-20 13:13] LABS: Opiate Scree,Urine Neg (NEGATIVE)
[2024-09-20 13:26] LABS: Amphetamine Screen, Urine Neg (NEGATIVE); Barbiturate Scree,Urine Neg (NEGATIVE); Benzodiazephine Screen, Urine Neg (NEGATIVE); Cannabinoid Screen, Urine Neg (NEGATIVE); Cocaine Screen, Urine Neg (NEGATIVE); Phencyclidine Screen, Urine Neg (NEGATIVE)
[2024-09-20 13:30] VITALS: BP 130/79; PULSE 77; RESP 16; TEMP 97.9; O2SAT 95
--- NOTE | 2024-09-20 14:42 | DVHPNRES ---
Progress Note Date Seen: September 20, 2024 Resident Creating Document: BELLA PHAN RESIDENT Medical Necessity Reason Pt with a Central, PICC or Fol: No Subjective Review of Systems Patient is a 48-year-old male with a past medical history of DVT and PE 2 years ago currently on Eliquis presented to the ED with a chief complaint of left lower leg swelling for 4 days prior to presentation. Patient reported that he was moving stuff in his yd on Monday when Fell onto his leg injuring the leg following which started to have severe pain and he visited the emergency where x-ray was done and no fracture or dislocation was reported and patient was sent home. Patient went home and started to have swelling of the lower extremity with the associated tenderness and erythema. Patient has had worsening pain following which she came to the hospital. Past medical history: DVT and PE currently on Eliquis Surgical history: None Social history: Patient denies smoking or any other drug use but drinks 4 shots of alcohol every day Medications: Eliquis 5 mg b.i.d. Review of systems Patient seen and examined at the bedside Reports of pain in the left lower extremity, no fever, chills Objective vital signs Vital Sign Date Time Temp Pulse Resp B/P (MAP) Pulse Ox O2 Delivery O2 Flow Rate FiO2 09/20/24 12:39 98.0 66 18 117/74 (88) 95 98.0 09/19/24 18:20 Room Air* 0 21 Total Intake and Output 09/19/24 09/19/24 09/20/24 15:00 23:00 07:00 Intake Total 200 ml 200 ml Balance 200 ml 200 ml medications Current Medications Medications Dose Ordered Sig/Srinath Route Start Time Stop Time Status Last Admin Dose Admin Vancomycin HCl 0 ml @ 0 mls/hr UD IV 09/19/24 21:15 Ceftriaxone Sodium 50 ml @ 100 mls/hr DAILY@09 IV 09/20/24 09:00 09/20/24 09:20 100 MLS/HR Apixaban 5 mg BID PO 09/19/24 22:00 Acetaminophen 650 mg Q4HP PRN PO 09/19/24 21:15 Ibuprofen 600 mg Q8HP PRN PO 09/19/24 21:15 09/20/24 00:25 600 MG Examination Gen - no pallor, no icterus, no cyanosis, no clubbing, no LAD, no edema . Skin - Patients skin is warm and dry. HEENT - normocephalic, atraumatic, moist mucous membranes. Neck - full ROM, no LAD, no JVD Pulmonary - B/L equal breath sounds, no crackles, no wheezing, no stridor. cardiovascular - regular S1,S2 heard, no added sounds, no murmurs heard. peripheral pulses normal radial 2+, pedal 2+. capillary refill normal <2 secs. GI - soft, nontender abdomen. no hepatospleenomegaly. Bowel sounds normoactive Extremities: Left lower extremity erythema area seen measuring about 8 cm X 6 cm, area marked Neurological - Patient is A/O X 3 . Bilateral upper extremity strength 5/5, bilateral lower extremity strength 5/5, no facial droop, normal speech, no tremor, no sensory deficiets. laboratory and microbiology Laboratory Tests 09/20/24 04:57 Test 09/20/24 04:57 Range/Units Serum Glucose 88 74-106 mg/dL Problem List/Assessment/Plan Problem List/Assessment/Plan Left lower extremity cellulitis - left lower extremity CT showed cellulitis with no drainable fluid collection or evidence of osteomyelitis, no acute fracture or dislocation - 1 dose of vancomycin given - IV ceftriaxone - monitor area of erythema - blood culture after 24 hours of incubation showed no growth - pain management - IV fluids H/O DVT and PE ? Distal left great saphenous thrombophlebitis - continued on Eliquis 5 mg b.i.d. - left lower extremity Doppler showed no evidence of deep venous thrombosis PUD prophylaxis: Protonix Goals of care discussed with the patient for over 27 minutes. Full code Plan discussed with Dr. Holguin Plan discussed with: Patient My Orders My Orders Orders - BELLA PHAN RESIDENT Procedure Category Date Status Time Sodium Chloride 0.9% PHA 09/20/24 In Process 11:30 Date of Service: September 20, 2024 Billing Provider: YARELIS HOLGUIN MD Common Visit Codes: [id number] INP/OBS CARE(HIGH) BELLA PHAN RESIDENT September 20, 2024 14:42 YARELIS HOLGUIN MD September 21, 2024 05:11
[2024-09-20 16:54] VITALS: BP 114/70; PULSE 70; RESP 18; TEMP 99.6; O2SAT 97
--- NOTE | 2024-09-20 19:07 | DVH ---
EXAM: US BILAT LOW EXT ART DUPLEX INDICATION: Swelling TECHNIQUE: Grayscale and color Doppler sonographic imaging evaluation of the right and left lower ext remity arterial system was performed COMPARISON: None available at the time of dictation. FINDINGS: RIGHT LOWER EXTREMITY ARTERIES: Common femoral artery: 101 cm/s, triphasic Deep femoral artery: 41 cm/s, triphasic Proximal femoral artery: 67 cm/s, triphasic Mid femoral artery: 104 cm/s, triphasic Distal femoral artery: 63 cm/s, triphasic Popliteal artery: 74 cm/s, triphasic Posterior tibial artery: 99 cm/s, triphasic Dorsalis pedis artery: 31 cm/s, triphasic LEFT LOWER EXTREMITY ARTERIES: Common femoral artery: 79 cm/s, triphasic Deep femoral artery: 38 cm/s, triphasic Proximal femoral artery: 106 cm/s, triphasic Mid femoral artery: 120 cm/s, triphasic Distal femoral artery: 97 cm/s, triphasic Popliteal artery: 93 cm/s, triphasic Posterior tibial artery: 58 cm/s, triphasic Dorsalis pedis artery: 67 cm/s, triphasic REFERENCE VALUES: Normal velocity ranges (in cm/sec) are as follows: [employer] 95-140, SFA 75-105, popliteal 54-84, tibial 41-81 cm/sec. Stenosis categories: 1.5-2.0 x normal velocity = 30-49%, 2.0-4.0 x normal velocity = 50-75%, >4.0 x normal velocity = >75%. IMPRESSION: 1. No sonographic evidence of a lower extremity arterial occlusion. Velocities as above.
[2024-09-20 20:00] VITALS: PULSE 81; RESP 19; O2SAT 96
[2024-09-20 21:00] VITALS: BP 121/67; PULSE 81; RESP 18; TEMP 96.8; O2SAT 96
[2024-09-21] VITALS (8 sets, daily range): BP systolic 106–130; BP diastolic 70–89; PULSE 63–85; RESP 16–18; TEMP 96.4–98.7; O2SAT 94–99
[2024-09-21] MEDS: PANTOPRAZOLE 40 MG TAB PO SCH (05:44)
[2024-09-21 06:44] LABS: Basophils # (auto) 0 10 ^3/uL (0-0.2); Basophils % (auto) 0.6 % (0.0-2.0); Eosinophils # (auto) 0.1 10 ^3/uL (0-0.8); Eosinophils % (auto) 2.3 % (0.0-7.0); Hematocrit 43.6 % (41.0-53.0); Hemoglobin 15.1 g/dL (13.5-17.5); Lymphocytes # (auto) 1.3 10 ^3/uL (0.4-5.4); Lymphocytes % (auto) 24.9 % (10.0-50.0); Mean Corpuscular Hemoglobin 32.3 pg (28.0-32.0); Mean Corpuscular Hgb Conc. 34.6 g/dL (32.0-36.0); Mean Corpuscular Volume 93.2 fL (80.0-100.0); Monocytes # (auto) 0.6 10 ^3/uL (0-1.3); Monocytes % (auto) 10.2 % (0.0-12.0); Neutrophils # (auto) 3.4 10 ^3/uL (1.6-8.6); Nucleated Red Blood Cells % 0.1 %; Platelet Count (auto) 238 10^3/uL (140-450); Red Blood Cells 4.68 10^6/uL (4.5-5.90); Red Cell Distribution Width 13.5 % (11.8-14.3); White Blood Cell 5.4 10^3/uL (4.4-10.8)
[2024-09-21 06:51] LABS: Chloride 106 mmol/L (98-107); Potassium 3.9 mmol/L (3.5-5.1); Sodium 140 mmol/L (136-145)
[2024-09-21 06:52] LABS: Anion Gap 8 (5-15); Carbon Dioxide 26 mmol/L (20-31)
[2024-09-21 06:53] LABS: Calcium 9.7 mg/dL (8.7-10.4)
[2024-09-21 06:58] LABS: BUN/Creatinine Ratio 16.5 (10.0-20.0); Blood Urea Nitrogen 15 mg/dL (9-23); Glucose 124 mg/dL (74-106)
--- NOTE | 2024-09-21 15:54 | DVHPNRES ---
Progress Note Date Seen: September 21, 2024 Resident Creating Document: BELLA PHAN RESIDENT Medical Necessity Reason Pt with a Central, PICC or Fol: No Subjective Review of Systems Patient seen and examined at the bedside Reports of pain in the left lower extremity improved since yesterday; no fever, chills Objective vital signs Vital Sign Date Time Temp Pulse Resp B/P (MAP) Pulse Ox O2 Delivery O2 Flow Rate FiO2 09/21/24 13:00 98.1 69 17 123/74 (90) 95 98.1 09/21/24 08:00 Room Air* 0 21 Total Intake and Output 09/20/24 09/20/24 09/21/24 15:00 23:00 07:00 Intake Total 250 ml 200 ml 700 ml Balance 250 ml 200 ml 700 ml medications Current Medications Medications Dose Ordered Sig/Srinath Route Start Time Stop Time Status Last Admin Dose Admin Vancomycin HCl 0 ml @ 0 mls/hr UD IV 09/19/24 21:15 Cancel Ceftriaxone Sodium 50 ml @ 100 mls/hr DAILY@09 IV 09/20/24 09:00 09/21/24 08:43 100 MLS/HR Apixaban 5 mg BID PO 09/19/24 22:00 09/21/24 08:43 5 MG Acetaminophen 650 mg Q4HP PRN PO 09/19/24 21:15 Ibuprofen 600 mg Q8HP PRN PO 09/19/24 21:15 09/21/24 05:47 600 MG Pantoprazole Sodium 40 mg DAILY@0600 PO 09/21/24 06:00 09/21/24 05:44 40 MG Examination Gen - no pallor, no icterus, no cyanosis, no clubbing, no LAD, no edema . Skin - Patients skin is warm and dry. HEENT - normocephalic, atraumatic, moist mucous membranes. Neck - full ROM, no LAD, no JVD Pulmonary - B/L equal breath sounds, no crackles, no wheezing, no stridor. cardiovascular - regular S1,S2 heard, no added sounds, no murmurs heard. peripheral pulses normal radial 2+, pedal 2+. capillary refill normal <2 secs. GI - soft, nontender abdomen. no hepatosplenomegaly. Bowel sounds normoactive Extremities: Left lower extremity erythema area decreased slightly since yesterday with decreased tenderness Neurological - Patient is A/O X 3 . Bilateral upper extremity strength 5/5, bilateral lower extremity strength 5/5, no facial droop, normal speech, no tremor, no focal deficits laboratory and microbiology Laboratory Tests 09/21/24 05:28 Test 09/21/24 05:28 Range/Units Serum Glucose 124 H 74-106 mg/dL Microbiology Date/Time Source Procedure Growth Status 09/19/24 15:26 Blood Blood Culture - Preliminary NO GROWTH AFTER 48 HOURS OF INCUBATION. Resulted Labs and/or images reviewed: Labs reviewed by me, Image(s) reviewed by me Problem List/Assessment/Plan Problem List/Assessment/Plan Left lower extremity cellulitis - left lower extremity CT showed cellulitis with no drainable fluid collection or evidence of osteomyelitis, no acute fracture or dislocation - 1 dose of vancomycin given - IV ceftriaxone - monitor area of erythema - blood culture after 48 hours of incubation showed no growth - pain management - IV fluids H/O DVT and PE Probable Distal left great saphenous thrombophlebitis - continued on Eliquis 5 mg b.i.d. - left lower extremity Doppler showed no evidence of deep venous thrombosis PUD prophylaxis: Protonix Goals of care discussed with the patient for 20 minutes. Full code Plan discussed with Dr. Louie Plan discussed with: Patient, Other (RN) My Orders My Orders Orders - BELLA PHAN RESIDENT Procedure Category Date Status Time Bilat Low Ext Art US 09/20/24 Resulted Duplex 16:24 Pantoprazole Tablet PHA 09/21/24 In Process (Protonix Tablet) 06:00 Addendum Addendum Addendum I was physically present for the tilley portions of the service provided to patient by THE RESIDENT. I have reviewed the documentation, discussed the case with resident and agree with the resident's documentation except as noted. Also the patient's clinical case was discussed with the patient's nurse. This medical document was created using an electronic medical record system with computerized dictation system. Although this document has been carefully reviewed, there might still be some phonetic and typographical errors. These areas are purely typographical due to imperfections of the software programs, and do not reflect any compromise in the patient's medical care. Late signature. Date of Service: September 21, 2024 Billing Provider: HERNÁN LOUIE MD Common Visit Codes: [id number] INP/OBS CARE(HIGH) Secondary Visit Codes: [id number] CARE PLAN 30 MINUTES (20 minutes) BELLA PHAN RESIDENT September 21, 2024 15:54 HERNÁN LOUIE MD Sep 22, 2024 12:36
[2024-09-22] VITALS (8 sets, daily range): BP systolic 93–129; BP diastolic 53–75; PULSE 59–77; RESP 14–18; TEMP 97–98.6; O2SAT 94–96
--- NOTE | 2024-09-22 18:41 | DVHPNRES ---
Progress Note Date Seen: Sep 22, 2024 Resident Creating Document: ROBBY DUKE RESIDENT Medical Necessity Reason Pt with a Central, PICC or Fol: No Subjective Review of Systems Patient seen and examined at bedside Continued to have left lower extremity erythema, pains mildly improved No fever, chills, no any other new events, no new night events. Objective vital signs Vital Sign Date Time Temp Pulse Resp B/P (MAP) Pulse Ox O2 Delivery O2 Flow Rate FiO2 09/22/24 16:30 97.8 64 14 119/66 (83) 95 97.8 09/22/24 08:00 Room Air* 0 21 Total Intake and Output 09/21/24 09/21/24 09/22/24 15:00 23:00 07:00 Intake Total 50 ml 1140 ml 800 ml Balance 50 ml 1140 ml 800 ml medications Current Medications Medications Dose Ordered Sig/Srinath Route Start Time Stop Time Status Last Admin Dose Admin Vancomycin HCl 0 ml @ 0 mls/hr UD IV 09/19/24 21:15 Cancel Ceftriaxone Sodium 50 ml @ 100 mls/hr DAILY@09 IV 09/20/24 09:00 09/22/24 09:24 100 MLS/HR Apixaban 5 mg BID PO 09/19/24 22:00 09/22/24 09:24 5 MG Acetaminophen 650 mg Q4HP PRN PO 09/19/24 21:15 Ibuprofen 600 mg Q8HP PRN PO 09/19/24 21:15 09/22/24 09:29 600 MG Pantoprazole Sodium 40 mg DAILY@0600 PO 09/21/24 06:00 09/22/24 05:55 40 MG Sodium Chloride 1,000 ml @ 100 mls/hr Q10H IV 09/22/24 12:30 Examination General Appearance: Cooperative. Well developed. Well nourished. NAD Head Exam: Normal inspection Neck Exam: Normal inspection. Non-tender. Normal alignment Pulmonary/Respiratory: Chest non-tender. Clear bilateral breath sounds Cardiovascular/Chest: Regular rate and rhythm. No murmurs. No JVD. Peripheral Pulses: 2+ Radial (R). 2+ Radial (L). 2+ Pedal (R). 2+ Pedal (L) Abdominal Exam: Normal bowel sounds. Soft. Nontender. No hepatosplenomegaly. No masses Ankle Exam: Negative ankle edema Lower extremities: Negative lower extremity edema, left lower extremity erythema, decreased erythema compared to yesterday, surgical marking has been done. Tenderness present. Neuro/Mental Status: A&O x4. Coherent Thoughts/Psych: Normal thought pattern. Appropriate mood and affect. Good judgement and insight Appearance: In no acute distress Skin Exam: Normal inspection. Normal color. Warm. Dry laboratory and microbiology Laboratory Tests 09/21/24 05:28 Test 09/21/24 05:28 Range/Units Serum Glucose 124 H 74-106 mg/dL Microbiology Date/Time Source Procedure Growth Status 09/19/24 15:26 Blood Blood Culture - Preliminary NO GROWTH AFTER 72 HOURS OF INCUBATION. Resulted Labs and/or images reviewed: Labs reviewed by me, Image(s) reviewed by me Problem List/Assessment/Plan Problem List/Assessment/Plan Left lower extremity cellulitis - left lower extremity CT showed cellulitis with no drainable fluid collection or evidence of osteomyelitis, no acute fracture or dislocation -continue IV ceftriaxone once daily with IV fluids -blood cultures negative H/O DVT and PE Probable Distal left great saphenous thrombophlebitis - continued on Eliquis 5 mg b.i.d. - left lower extremity Doppler showed no evidence of deep venous thrombosis Prediabetic HGB A1c 5.9 % Overweight -counseled on lifestyle modifications, regular exercise, low-carbohydrate index diet, encouraged weight loss PUD prophylaxis: Protonix Plan discussed with Dr. Louie Plan discussed with: Patient, Other (RN) My Orders My Orders Orders - ROBBY DUKE RESIDENT Procedure Category Date Status Time Sodium Chloride 0.9% PHA 09/22/24 In Process 12:30 Dietary Evaluation Review Comments: 1) Add 60g CCHO restriction to diet. Encourage optimal PO intake 2) Initiate MVI @ 1 tb qd 3) Refer to outpatient RD/[facility] for weight management and prediabetes education 4) Encourage patient to limit intake of added sugar including desserts and sugar-sweetened beverages. Aim for a consistent amount of carbohydrates throughout the day, paired with protein to help promote glucose control. Review ADA physical activity guidelines of at least 150 minutes of moderate-intensity aerobic exercise weekly. 5) Follow-up with vascular surgeon 6) Follow-up with sr. social media & mobile manager r/t ETOH abuse 7) Continue to monitor I&O, labs, and skin integrity Expected Outcomes/Goals: 1) appetite and labs to improve 2) wounds to improve 3) f/u in 3-5 days Addendum Addendum Addendum I was physically present for the tilley portions of the service provided to patient by THE RESIDENT. I have reviewed the documentation, discussed the case with resident and agree with the resident's documentation except as noted. Also the patient's clinical case was discussed with the patient's nurse. This medical document was created using an electronic medical record system with computerized dictation system. Although this document has been carefully reviewed, there might still be some phonetic and typographical errors. These areas are purely typographical due to imperfections of the software programs, and do not reflect any compromise in the patient's medical care. Late signature. Date of Service: Sep 22, 2024 Billing Provider: HERNÁN LOUIE MD Common Visit Codes: [id number] INP/OBS CARE(HIGH) ROBBY DUKE RESIDENT Sep 22, 2024 18:41 HERNÁN LOUIE MD Sep 23, 2024 05:18
[2024-09-22] MEDS: traMADol HCL 50 MG TAB PO ONE (23:07)
[2024-09-22] MEDS: SODIUM CHLORIDE 0.9% 1,000 ML IV SCH (23:13)
[2024-09-23] VITALS (8 sets, daily range): BP systolic 118–129; BP diastolic 71–89; PULSE 66–80; RESP 14–18; TEMP 96.1–98.9; O2SAT 94–96
[2024-09-23 07:46] LABS: Basophils # (auto) 0 10 ^3/uL (0-0.2); Basophils % (auto) 0.7 % (0.0-2.0); Eosinophils # (auto) 0.1 10 ^3/uL (0-0.8); Eosinophils % (auto) 1.8 % (0.0-7.0); Hemoglobin 15.4 g/dL (13.5-17.5); Lymphocytes # (auto) 1.7 10 ^3/uL (0.4-5.4); Lymphocytes % (auto) 29.3 % (10.0-50.0); Mean Corpuscular Hemoglobin 32.5 pg (28.0-32.0); Mean Corpuscular Hgb Conc. 35.1 g/dL (32.0-36.0); Mean Corpuscular Volume 92.8 fL (80.0-100.0); Monocytes # (auto) 0.5 10 ^3/uL (0-1.3); Monocytes % (auto) 8.5 % (0.0-12.0); Neutrophils # (auto) 3.4 10 ^3/uL (1.6-8.6); Neutrophils % (auto) 59.7 % (37.0-80.0); Platelet Count (auto) 279 10^3/uL (140-450); Red Blood Cells 4.74 10^6/uL (4.5-5.90); Red Cell Distribution Width 13.5 % (11.8-14.3); White Blood Cell 5.7 10^3/uL (4.4-10.8)
[2024-09-23] MEDS: SULFAMETHOX W/TRIMETH(800/160MG) DS TAB PO SCH (10:00)
--- NOTE | 2024-09-23 13:31 | DVHPNRES ---
Progress Note Date Seen: Sep 23, 2024 Resident Creating Document: IMMANUEL GARZA RESIDENT Medical Necessity Reason Pt with a Central, PICC or Fol: No Subjective Review of Systems 48-year-old male with past medical history of DVT 2 months ago (currently on apixaban), presents with left lower leg pain, redness, and swelling that started worsening over the last few days. He reports that on Monday, a dryer fell onto his left leg. He initially went to an outside ER where x-rays were negative for fracture and he was discharged. However, symptoms progressed with increased redness, swelling, and pain rated 8/10. He denies fevers, chills, night sweats, nausea, vomiting, or recent trauma other than the dryer incident. He is currently unable to bear weight on the leg. CT imaging revealed soft tissue edema and thickening in the distal leg; no fracture. Past Medical History: Recent DVT (on apixaban per patient) Medications: Apixaban 5 mg BID Tylenol as needed for pain Allergies: No known drug allergies Social History: Ambulatory prior to this event No mention of tobacco or drug use Alcohol: 4 shots every day (last intake on monday) 09/23/2024: the leg cellulites is not getting better, clindamycin will be added to his regimen, if no response, image will be considered Objective vital signs Vital Sign Date Time Temp Pulse Resp B/P (MAP) Pulse Ox O2 Delivery O2 Flow Rate FiO2 09/23/24 08:30 98.4 66 14 122/71 (88) 95 98.4 09/23/24 08:00 Room Air* 0 21 Total Intake and Output 09/22/24 09/22/24 09/23/24 15:00 23:00 07:00 Intake Total 50 ml 300 ml Output Total 0 ml Balance 50 ml 300 ml medications Current Medications Medications Dose Ordered Sig/Srinath Route Start Time Stop Time Status Last Admin Dose Admin Vancomycin HCl 0 ml @ 0 mls/hr UD IV 09/19/24 21:15 Cancel Apixaban 5 mg BID PO 09/19/24 22:00 09/23/24 10:00 5 MG Acetaminophen 650 mg Q4HP PRN PO 09/19/24 21:15 Ibuprofen 600 mg Q8HP PRN PO 09/19/24 21:15 09/22/24 09:29 600 MG Pantoprazole Sodium 40 mg DAILY@0600 PO 09/21/24 06:00 09/23/24 05:34 40 MG Sodium Chloride 1,000 ml @ 100 mls/hr Q10H IV 09/22/24 12:30 09/23/24 08:30 100 MLS/HR Clindamycin Phosphate 50 ml @ 50 mls/hr Q8HR IV 09/23/24 13:30 UNV Examination General Appearance: Cooperative. Well developed. Well nourished. NAD Head Exam: Normal inspection Pulmonary/Respiratory: Chest non-tender. Clear bilateral breath sounds Cardiovascular/Chest: Regular rate and rhythm. No murmurs. No JVD. Peripheral Pulses: 2+ Radial (R). 2+ Radial (L). 2+ Pedal (R). 2+ Pedal (L) Abdominal Exam: Normal bowel sounds. Soft. Nontender. No hepatosplenomegaly. No masses Ankle Exam: Negative ankle edema Lower extremities: Negative lower extremity edema, left lower extremity erythema Neuro/Mental Status: A&O x4. Coherent Thoughts/Psych: Normal thought pattern. Appropriate mood and affect. Good judgement and insight Appearance: In no acute distress Skin Exam: Normal inspection. Normal color. Warm. Dry laboratory and microbiology Laboratory Tests 09/23/24 06:44 09/21/24 05:28 Test 09/21/24 05:28 Range/Units Serum Glucose 124 H 74-106 mg/dL Microbiology Date/Time Source Procedure Growth Status 09/19/24 15:26 Blood Blood Culture - Preliminary NO GROWTH AFTER 72 HOURS OF INCUBATION. Resulted Problem List/Assessment/Plan Problem List/Assessment/Plan #Left lower extremity cellulitis - left lower extremity CT showed cellulitis with no drainable fluid collection or evidence of osteomyelitis, no acute fracture or dislocation, at admission - clindamycin IV -blood cultures negative #H/O DVT and PE #Probable Distal left great saphenous thrombophlebitis - continued on Eliquis 5 mg b.i.d. - left lower extremity Doppler showed no evidence of deep venous thrombosis Prediabetic HGB A1c 5.9 % Overweight -counseled on lifestyle modifications, regular exercise, low-carbohydrate index diet, encouraged weight loss PUD prophylaxis: Protonix Plan discussed with Dr. Villaseñor Full code Plan discussed with: Patient, Other (rn) My Orders My Orders Orders - THRASHER R,IMMANUEL RESIDENT Procedure Category Date Status Time Clindamycin 900mg Iv PHA 09/23/24 Logged (Cleocin Iv) 13:30 Dietary Evaluation Review Comments: 1) Add 60g CCHO restriction to diet. Encourage optimal PO intake 2) Initiate MVI @ 1 tb qd 3) Refer to outpatient RD/[facility] for weight management and prediabetes education 4) Encourage patient to limit intake of added sugar including desserts and sugar-sweetened beverages. Aim for a consistent amount of carbohydrates throughout the day, paired with protein to help promote glucose control. Review ADA physical activity guidelines of at least 150 minutes of moderate-intensity aerobic exercise weekly. 5) Follow-up with vascular surgeon 6) Follow-up with social media strategist r/t ETOH abuse 7) Continue to monitor I&O, labs, and skin integrity Expected Outcomes/Goals: 1) appetite and labs to improve 2) wounds to improve 3) f/u in 3-5 days Date of Service: Sep 23, 2024 Billing Provider: MCKENZIE VILLASEÑOR MD Common Visit Codes: [id number] INP/OBS CARE(HIGH) IMMANUEL GARZA RESIDENT Sep 23, 2024 13:31 MCKENZIE VILLASEÑOR MD Sep 24, 2024 09:16
[2024-09-23] MEDS: CLINDAMYCIN 900MG IV 50 ML IV SCH (14:00)
[2024-09-24 01:00] VITALS: BP 127/75; PULSE 69; RESP 19; TEMP 98.2; O2SAT 93
[2024-09-24 05:00] VITALS: BP 106/70; PULSE 65; RESP 18; TEMP 98; O2SAT 93
[2024-09-24 06:13] LABS: Alanine Aminotransferase 15 U/L (7-40); Alkaline Phosphatase 69 U/L (46-116); Anion Gap 8 (5-15); Aspartate Aminotransferase 15 U/L (13-40); BUN/Creatinine Ratio 9.9 (10.0-20.0); Basophils # (auto) 0 10 ^3/uL (0-0.2); Basophils % (auto) 0.5 % (0.0-2.0); Blood Urea Nitrogen 10 mg/dL (9-23); Calcium 9.4 mg/dL (8.7-10.4); Carbon Dioxide 25 mmol/L (20-31); Chloride 105 mmol/L (98-107); Eosinophils # (auto) 0.1 10 ^3/uL (0-0.8); Eosinophils % (auto) 1.9 % (0.0-7.0); Hematocrit 44.6 % (41.0-53.0); Hemoglobin 15.3 g/dL (13.5-17.5); Lymphocytes # (auto) 1.1 10 ^3/uL (0.4-5.4); Lymphocytes % (auto) 18.8 % (10.0-50.0); Mean Corpuscular Hemoglobin 31.9 pg (28.0-32.0); Mean Corpuscular Hgb Conc. 34.2 g/dL (32.0-36.0); Mean Corpuscular Volume 93.2 fL (80.0-100.0); Monocytes # (auto) 0.5 10 ^3/uL (0-1.3); Neutrophils # (auto) 4.1 10 ^3/uL (1.6-8.6); Neutrophils % (auto) 70.8 % (37.0-80.0); Platelet Count (auto) 285 10^3/uL (140-450); Potassium 4.3 mmol/L (3.5-5.1); Red Blood Cells 4.78 10^6/uL (4.5-5.90); Red Cell Distribution Width 13.4 % (11.8-14.3); Sodium 138 mmol/L (136-145); Total Protein 6.3 g/dL (5.7-8.2); White Blood Cell 5.8 10^3/uL (4.4-10.8)
[2024-09-24 06:14] LABS: Bilirubin, Total 0.5 mg/dL (0.2-1.0)
[2024-09-24 06:25] LABS: Glucose 112 mg/dL (74-106)
[2024-09-24 08:00] VITALS: PULSE 69; RESP 18; O2SAT 94
[2024-09-24 09:00] VITALS: BP 119/84; PULSE 69; RESP 18; TEMP 97.8; O2SAT 94
[2024-09-24] MEDS ORDERED: BACDST PO (10:23)
[2024-09-24] MEDS ORDERED: IBUP-1453 PO (10:24)
--- NOTE | 2024-09-24 11:14 | DVHDSRES ---
Discharge Summary Date of Admission Resident Creating Document: IMMANUEL GARZA RESIDENT September 19, 2024 at 21:05 Date of Discharge: Sep 24, 2024 Admitting Diagnosis #Left lower extremity cellulitis Labs/Diagnostic Data: Laboratory Results Test 09/24/24 05:33 09/20/24 12:34 09/20/24 04:57 09/19/24 15:26 White Blood Count 5.8 10^3/uL (4.4-10.8) Red Blood Count 4.78 10^6/uL (4.5-5.90) Hemoglobin 15.3 g/dL (13.5-17.5) Hematocrit 44.6 % (41.0-53.0) Mean Corpuscular Volume 93.2 fL (80.0-100.0) Mean Corpuscular Hemoglobin 31.9 pg (28.0-32.0) Mean Corpuscular Hemoglobin Concent 34.2 g/dL (32.0-36.0) Red Cell Distribution Width 13.4 % (11.8-14.3) Platelet Count 285 10^3/uL (140-450) Mean Platelet Volume 7.2 fL (6.9-10.8) Neutrophils (%) (Auto) 70.8 % (37.0-80.0) Lymphocytes (%) (Auto) 18.8 % (10.0-50.0) Monocytes (%) (Auto) 8.0 % (0.0-12.0) Eosinophils (%) (Auto) 1.9 % (0.0-7.0) Basophils (%) (Auto) 0.5 % (0.0-2.0) Neutrophils # (Auto) 4.1 10 ^3/uL (1.6-8.6) Lymphocytes # (Auto) 1.1 10 ^3/uL (0.4-5.4) Monocytes # (Auto) 0.5 10 ^3/uL (0-1.3) Eosinophils # (Auto) 0.1 10 ^3/uL (0-0.8) Basophils # (Auto) 0 10 ^3/uL (0-0.2) Nucleated Red Blood Cells 0.0 % Sodium Level 138 mmol/L (136-145) Potassium Level 4.3 mmol/L (3.5-5.1) Chloride Level 105 mmol/L (98-107) Carbon Dioxide Level 25 mmol/L (20-31) Anion Gap 8 (5-15) Blood Urea Nitrogen 10 mg/dL (9-23) Creatinine 1.01 mg/dL (0.700-1.30) Glomerular Filtration Rate Calc 91 mL/min (>90) BUN/Creatinine Ratio 9.9 (10.0-20.0) Serum Glucose 112 mg/dL (74-106) Calcium Level 9.4 mg/dL (8.7-10.4) Total Bilirubin 0.5 mg/dL (0.2-1.0) Aspartate Amino Transferase (AST) 15 U/L (13-40) Alanine Aminotransferase (ALT) 15 U/L (7-40) Alkaline Phosphatase 69 U/L (46-116) Total Protein 6.3 g/dL (5.7-8.2) Albumin 4.0 g/dL (3.2-4.8) Urine Color Yellow (Yellow) Urine Clarity Clear (Clear) Urine pH 5.5 (5.0-9.0) Urine Specific Stamps 1.032 (1.001-1.035) Urine Protein Trace (Negative) Urine Ketones 2+ (Negative) Urine Blood Negative /uL (Negative) Urine Nitrite Negative (Negative) Urine Bilirubin Negative (Negative) Urine Urobilinogen 2 mg/dL (Negative) Urine Leukocyte Esterase Negative /uL (Negative) Urine RBC 2 /hpf (0 - 3) Urine Microscopic WBC 1 /HPF (0-3) Urine Squamous Epithelial Cells Few /hpf (<5) Urine Bacteria Few /hpf (None Seen) Urine Glucose 2+ mg/dL (Normal) Urine Opiates Screen Neg (NEGATIVE) Urine Fentanyl Screen Neg (NEGATIVE) Urine Barbiturates Screen Neg (NEGATIVE) Urine Phencyclidine Screen Neg (NEGATIVE) Urine Amphetamines Screen Neg (NEGATIVE) Urine Benzodiazepines Screen Neg (NEGATIVE) Urine Cocaine Screen Neg (NEGATIVE) Urine Cannabinoids Screen Neg (NEGATIVE) Hemoglobin A1c 5.9 % A1C (<5.7) Thyroid Stimulating Hormone (TSH) 3.07 uIU/mL (0.55-4.78) Erythrocyte Sedimentation Rate 49 mm/hr (0-20) Lactic Acid Level 0.8 mmol/L (0.4-2.0) Direct Bilirubin 0.3 mg/dL (<0.3) C-Reactive Protein High Sensitivity 19.45 mg/dL (<1.0) Other Laboratory Tests 09/24/24 05:33 Brief Hx & Hospital Course: 48-year-old male with a history of recent left lower extremity DVT on apixaban presented with worsening pain, swelling, and redness after trauma to the left leg (a dryer fell onto it). Initial CT showed cellulitis without drainable fluid collection or signs of osteomyelitis or fracture. Doppler ultrasound ruled out new DVT. Blood cultures were negative. He was started on IV vancomycin, then downgrade to ceftriaxone and transitioned to clindamycin. Patient improved with treatment and remained hemodynamically stable throughout hospitalization. Medications on Discharge: Bactrim DS 1 tab BID for 14 days Apixaban 5 mg BID Ibuprofen 400 mg TID Follow-Up: Follow up with [facility] on October 01, 2024 Patient is to remain off work with medical leave until October 02, 2024 Disposition: Discharged home in stable condition with resolution of acute symptoms and safe to continue recovery outpatient. Case discussed with Dr Villaseñor Operations or Procedures Procedure: CT LT LOWER EXTREMITY W CONTRAS 09/19/2024 04:39 PM Indication: Cellulitis. R/o abscess formation Comparison Study: None Technique: Axial images of the left lower extremity (knee to the toes) were obtained after intravenous administration of contrast and reformatted in coronal and sagittal planes. All CT scans at this medical facility are performed using dose modulation techniques as appropriate to a performed exam including the following: Automated exposure control was utilized; adjustment of the MA and/or KV according to patient size; and use of iterative reconstruction technique. CT Dose: CTDI volume is 7.75 mGy. Dose-length product is 494.8 mGy*cm FINDINGS: Bones: No acute fracture or dislocation. Joint spaces are maintained. Tibial hallux sesamoid is seen. Soft tissues: Moderate subcutaneous edema noted over the lower calf medial malleolus. There is focal thickening of distal greater saphenous vein at the level of the lower leg and medial malleolus. IMPRESSION: 1. Cellulitis with no drainable fluid collection or evidence of osteomyelitis. Distal greater saphenous thrombophlebitis can not be ruled out. Recommend clinical correlation and further evaluation with venous Doppler exam if clinically warranted. Condition at Discharge: Stable Final Diagnosis/Problems List #Left lower extremity cellulitis #H/O DVT and PE #Probable Distal left great saphenous thrombophlebitis #Prediabetic HGB A1c 5.9 % #Overweight Discharge Disposition: Home Discharge Instruct/Medications Diet: Regular Activity: Bed rest Activity comment: patient will need medical leave until 10/02/2024, f/u dr Lake 10/01/2024 Follow Up/Referral: patient will need medical leave until 10/02/2024, f/u dr Lake 10/01/2024 Medications: see prescription Discharge Statement: "Patient was advised to return to the ER or call 911 if any headaches, dizziness, shortness of breath, chest pain, abdominal pain, bleeding, fevers, or worsening of medical condition. Patient was counseled about treatment plan, medications, possible side effects, patientverbalized understanding. All questions were answered to the best of my ability. This discharge took greater then 30 minutes in planning, reviewing documentation, counseling the patient, and discussing with other team members." ASSESSMENT ASSESSMENT Assessment leg cellulitis Date of Service: Sep 24, 2024 Billing Provider: MCKENZIE VILLASEÑOR MD Common Visit Codes: [id number] DISCH DAY >30min IMMANUEL GARZA RESIDENT Sep 24, 2024 11:14 MCKENZIE VILLASEÑOR MD Sep 25, 2024 11:18
[2024-09-24 13:00] VITALS: BP 125/82; PULSE 80; RESP 18; TEMP 98; O2SAT 94
== END 2024-09-24 14:20 | disposition home or self-care (01) | DRG 603 ==
LOC: ER 13:07 → OVERFLOW 21:05 → EAST 09-20 13:18
PROVIDERS: ADMIT Student in an Organized Health Care Education/Training Program; ATTEND Student in an Organized Health Care Education/Training Program
DX: L03.116 Cellulitis of left lower limb (principal); I80.02 Phlebitis and thrombophlebitis of superficial vessels of left lower extremity; F10.10 Alcohol abuse, uncomplicated; E66.3 Overweight; R73.03 Prediabetes; Z86.718 Personal history of other venous thrombosis and embolism; Z83.3 Family history of diabetes mellitus; Z79.01 Long term (current) use of anticoagulants; Z86.711 Personal history of pulmonary embolism; Z68.29 Body mass index [BMI] 29.0-29.9, adult
CPT/HCPCS: 36415; 73701; 80048; 80053; 80076; 80307; 81001; 83036; 83605; 84443; 85025; 85652; 86141; 87040; 93925; 93971; 96365; G0378; J3490